=== PATIENT | male | born 2000 | race Caucasian/White ===

== ENCOUNTER 2023-02-03 11:29 | Outpatient (CLI) | payer BC ==
[~2023-02-03 11:29] MED LIST: Iopamidol 300 61% 100 ML VIAL FS ONE
== END 2023-02-03 11:30 | disposition home or self-care (01) ==
LOC: CSHCT 11:29
PROVIDERS: ATTEND Family Medicine
DX: R10.31 Right lower quadrant pain (principal)
CPT/HCPCS: 74177; Q9967